=== PATIENT | male | born 1960 | race Caucasian/White ===

== ENCOUNTER 2016-07-01 14:46 | Emergency (ER) | payer OTHER ==
[~2016-07-01] VITALS: Ht 167.6 cm; Wt 96.2 kg
[~2016-07-01 14:46] MED LIST: ALBUTEROL0.09 MG/A1 INH; AMLODIPINE BES2.5 M1 PO; AMLODIPINE BESY10 MG PO; CALCITRIOL0.5 MC1; CALCIUM ACETAT667 M3 PO; COLCHICINE0.6 M2 PO; CYCLOBENZAPRINE10 M1 PO; DIAZEPAM5 MG PO; ENDOCET 325 MG-1 TA1 PO; FLEXERIL10 MG PO; FUROSEMIDE40 M1 PO; LISINOPRIL20 M1 PO; LISINOPRIL40 MG PO; MEDROL DOSEPAK1 PAC PO; MEDROL4 M2 PO; METHOCARBAMOL750 MG; METOLAZONE2.5 M1 PO; MOBIC15 MG PO; NAPROSYN 500 M500 MG PO; NAPROXEN500 M1 PO; NAPROXEN500 MG PO; NORCO 325 MG-101 TAB PO; OXYCODONE HCL5 M2 PO; PANTOPRAZOLE SO40 M1; PERCOCET 325 MG1 TA2 PO; PERCOCET 325 MG1 TA3 PO; PERCOCET 325 MG1 TAB PO; PERCOCET 5-3251 EACH PO; PRAVASTATIN SOD40 MG PO; PREDNICOT20 MG PO; ROXICODONE5 M1 PO; TAMSULOSIN HCL0.4 M1 PO; TAMSULOSIN HYD0.4 MG PO; TORADOL10 MG PO; TRADJENTA5 MG PO; TRAZODONE HCL100 M1; VALIUM2 M1 PO; VALIUM5 M1 PO; VALIUM5 M2 PO; VICODIN5-300 PO; ZITHROMAX Z-PA250 M1 PO
[2016-07-01 14:54] VITALS: BP 176/93
[2016-07-01] MEDS ORDERED: COLCHICINE0.6 M3 PO (15:35)
--- NOTE | 2016-07-01 15:36 | ED NECK/BACK PAIN COMPLAINT ---
History of Present Illness General Chief Complaint: Low Back Pain/Injury Stated Complaint: BACK PAIN Source: patient Exam Limitations: no limitations Vital Signs & Intake/Output Vital Signs & Intake/Output Vital Signs Date Time Temp Pulse Resp B/P Pulse O2 O2 Flow FiO2 Ox Delivery Rate 07/01 1454 98.7 108 20 176/93 98 Room Air Allergies Coded Allergies: nut - unspecified (ANAPHYLAXIS 04/07/16) Reconcile Medications Albuterol Sulfate (Albuterol Sulfate Hfa) 90 MCG HFA.AER.AD 2 PUFF INH Q4-6 PRN PRN WHEEZE 90 MCG PER PUFF Amlodipine Besylate 2.5 MG TABLET 1 TAB PO DAILY BP (Reported) Calcium Acetate 667 MG CAPSULE 2 CAP PO WM KIDNEYS (Reported) Colchicine 0.6 MG CAPSULE 1 CAP PO Q3D KIDNEYS (Reported) Diazepam (Valium) 5 MG TABLET 1 TAB PO Q6P PRN spasms Furosemide 40 MG TABLET 1 TAB PO DAILY KIDNEY PROBLEMS (Reported) Lisinopril 20 MG TABLET 1 TAB PO DAILY BP (Reported) Metolazone 2.5 MG TABLET 1 TAB PO DAILY DIURETIC (Reported) Oxycodone HCl/Acetaminophen (Percocet 5-325 MG Tablet) 5 MG-325 MG TABLET 1-2 TAB PO Q6P PRN pain Triage Note: PT TO ED C/O R LOWER BACK PAIN RADIATING TO HIS RIGHT HIP AND DOWN RIGHT LEG. PT HAS AN APPT WITH A PAIN MANAGEMENT DOCTOR ON 07/24. H/O BACK SURGERIES AND CHRONIC PAIN. PT HAS BEEN TAKING TRAMADOL AND VALIUM THAT WERE PRESCRIBED FROM ANOTHER ER. Triage Nurses Notes Reviewed? yes Onset: Abrupt Duration: day(s):, getting worse Quality/Severity: moderate, severe HPI: 55-year-old male with a history of chronic back pain secondary to arthritis spinal stenosis and multiple back surgeries comes in with acute exacerbation of chronic pain has been going on recently over last few days. Patient is supposed to see pain management at the end of this month. Denies any new symptoms. Pain is consistent with previous pain in the past. Pain she is down his right leg. Patient has chronic weakness in his right leg. Patient has seen his neurosurgeon and orthopedic doctor multiple times. They thought he would be best served to go to pain management. (KATHLEEN CONNOR,TAMIKO) Past History Travel History Traveled to [place] past 21 day No Medical History Any Pertinent Medical History? 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 No (TAMIKO PEDRAZA) Review of Systems Review of Systems Constitutional: Reports: no symptoms. Eyes: Reports: no symptoms. Ears, Nose, Throat, Mouth: Reports: no symptoms. Respiratory: Reports: no symptoms. Cardiovascular: Reports: no symptoms. Gastrointestinal/Abdominal: Reports: no symptoms. Musculoskeletal: Reports: see HPI. Skin: Reports: no symptoms. Neurological/Psychological: Reports: no symptoms. All Other Systems: Reviewed and Negative (TAMIKO PEDRAZA) Physical Exam Physical Exam General Appearance: well developed/nourished, mild distress Head: atraumatic Eyes: Bilateral: normal appearance. Ears, Nose, Throat, Mouth: hearing grossly normal, moist mucous membrane Neck: normal inspection Respiratory: normal breath sounds, no respiratory distress Cardiovascular: regular rate/rhythm Back: normal inspection Extremities: normal range of motion Neurologic/Psych: awake, alert, oriented x 3, normal mood/affect Skin: intact, normal color, warm/dry Comments: 4-5 strength right lower 70, 5 out of 5 strength left lower extremity (TAMIKO PEDRAZA) Progress Differential Diagnosis: AAA, aortic dissection, C spine injury, carotid dissection, cauda equina syn, herniated disc, myofascial strain, pyelo/UTI, sciatica, spinal cord inj, thoracic outlet syn, T/L spine injury, ureterolithiasis, Spinal stenosis, arthritis, Plan of Care: Current Medications Sig/Bob Start time Last Medication Dose Stop Time Status Admin Hydromorphone HCl 1 MG ONCE ONE 07/01 1543 AC (Dilaudid) 07/01 1546 Comments: 07/01/2016 3:49:38 PM Pain is chronic for this patient. Pain is consistent with previous pain. Patient is appointed pain management. Patient requesting pain medication to go home with. Patient has no new symptoms. Return if any other concerns. Patient understands and agrees with plan of care. Patient should also contact his neurosurgeon and orthopedic for follow-up. (TAMIKO PEDRAZA) Departure Departure Disposition: HOME OR SELF CARE Condition: Stable Clinical Impression Primary Impression: Acute exacerbation of chronic low back pain Referrals: YARELI TERRELL,NYDIA Orozco (PCP/Family) Referred to [facility] as new patient No Additional Instructions: Take Percocet and Valium as prescribed. Follow-up with pain management as already scheduled. Return if any other concerns worsening symptoms. Please go over all results of today's visit with your primary care doctor. Contact your primary care doctor to let them know you were here in the emergency room. There may be nonspecific findings which may not be related to your visit today here in the emergency room but may require further evaluation and chronic monitoring by your primary care doctor. If you had a laceration today the chance of foreign body always remains. You should follow-up with your primary care doctor for recheck in 3-5 days for a wound check. If you had an x-ray done there is a chance that a fracture could have been missed on initial read and you should follow-up with your primary care doctor for repeat x-rays if symptoms persist. If your blood pressure was elevated here in the emergency room please have rechecked by her primary care doctor within the next 48 hours by your primary care doctor. If you were prescribed a narcotic here in the emergency room or any type of controlled substances you're not allowed to drive while taking this medication or operate any type of heavy machinery. Narcotics can make you feel lightheaded dizziness nausea and can cause constipation. You may need to pharmacy picking technician a stool softener. Thank you for choosing [facility] emergency room. Please return to the emergency room immediately if you have any other concerns worsening of symptoms. Departure Forms: Customer Survey General Discharge Information Prescriptions: Current Visit Scripts Oxycodone HCl/Acetaminophen (Percocet 5-325 MG Tablet) 1-2 TAB PO Q6P PRN pain #20 TAB Diazepam (Valium) 1 TAB PO Q6P PRN spasms #20 TAB (TAMIKO PEDRAZA) PA/ELEMENTARY SCHOOL COUNSELOR Co-Sign Statement Statement: ED Attending supervision documentation- [] I saw and evaluated the patient. I have also reviewed all the pertinent lab results and diagnostic results. I agree with the findings and the plan of care as documented in the PA's/ELEMENTARY SCHOOL COUNSELOR's documentation. [X] I have reviewed the ED Record and agree with the PA's/ELEMENTARY SCHOOL COUNSELOR's documentation. [] Additions or exceptions (if any) to the PAs/ELEMENTARY SCHOOL COUNSELOR's note and plan are summarized below: [] (DERIAN LOONEY DO)
[2016-07-01] MEDS ORDERED: PERCOCET 5-3251 EACH PO (15:40)
[2016-07-01] MEDS ORDERED: VALIUM5 M2 PO (15:40)
== END 2016-07-01 15:47 ==
LOC: ERH 14:46
DX: G89.29 Other chronic pain (principal); M54.5 Low back pain
CPT/HCPCS: 96372

== ENCOUNTER 2016-07-15 12:11 | Emergency (ER) | payer OTHER ==
[~2016-07-15] VITALS: Ht 167.6 cm; Wt 96.2 kg
[~2016-07-15 12:11] MED LIST changes: +COLCHICINE0.6 M3 PO
[2016-07-15 12:19] VITALS: BP 195/85
--- NOTE | 2016-07-15 13:19 | ED NECK/BACK PAIN COMPLAINT ---
History of Present Illness General Chief Complaint: Lower Extremity Problems Stated Complaint: R LEG PAIN RAIDIATING INTO FOOT Source: patient Exam Limitations: no limitations Vital Signs & Intake/Output Vital Signs & Intake/Output Vital Signs Date Time Temp Pulse Resp B/P Pulse O2 O2 Flow FiO2 Ox Delivery Rate 07/15 1219 98.8 89 18 195/85 98 Room Air ED Intake and Output 07/16 0000 07/15 1200 Intake Total Output Total Balance Patient 212 lb Weight Allergies Coded Allergies: nut - unspecified (ANAPHYLAXIS 04/07/16) Reconcile Medications Albuterol Sulfate (Albuterol Sulfate Hfa) 90 MCG HFA.AER.AD 2 PUFF INH Q4-6 PRN PRN WHEEZE 90 MCG PER PUFF Amlodipine Besylate 2.5 MG TABLET 1 TAB PO DAILY BP (Reported) Calcium Acetate 667 MG CAPSULE 2 CAP PO WM KIDNEYS (Reported) Colchicine 0.6 MG CAPSULE 1 CAP PO Q3D KIDNEYS (Reported) Diazepam (Valium) 5 MG TABLET 1 TAB PO Q6P PRN spasms Diazepam (Valium) 5 MG TABLET 1 TAB PO TID SPASMS Doxycycline Hyclate 100 MG TABLET 1 TAB PO BID FOLLICULITIS Furosemide 40 MG TABLET 1 TAB PO DAILY KIDNEY PROBLEMS (Reported) Lisinopril 20 MG TABLET 1 TAB PO DAILY BP (Reported) Metolazone 2.5 MG TABLET 1 TAB PO DAILY DIURETIC (Reported) Mupirocin Calcium (Bactroban) 2 % CREAM..G. 1 SANA TOP TID RASH apply to affected area(s) Oxycodone HCl/Acetaminophen (Percocet 5-325 MG Tablet) 5 MG-325 MG TABLET 1-2 TAB PO Q6P PRN pain Oxycodone HCl/Acetaminophen (Percocet 5-325 MG Tablet) 5 MG-325 MG TABLET 1-2 TAB PO Q6P PRN pain Triage Note: PT STATES HE HAS CHRONIC SCIATICA RUNNING DOWN HIS RIGHT LEG INTO HIS BIG TOE. PT STATES HE HAS BEEN TAKING PERCOCET AND VALIUM FOR THE PAIN. PT IS [facility]ING [facility] IN [place] Triage Nurses Notes Reviewed? yes Onset: Abrupt Duration: chronic Timing: recent history Quality/Severity: moderate, severe Location: lumbar spine Radiation: none Loss of Consciousness: no loss of consciousness HPI: 55-year-old male comes into emergency room with complaints of chronic low back pain reading down his right leg. Patient is due to see pain management on July 24. Patient was here recently. Patient here for refill on pain medication. Pain is chronic. Continuous. Worse with range of motion. Unchanged from previous pain. No urinary bowel dysfunction. Percocet and Valium that was prescribed last time helped but he ran out of the medication. Denies any other associated symptoms. (TAMIKO PEDRAZA) Past History Travel History Traveled to [place] past 21 day No Medical History Any Pertinent Medical History? 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 No (TAMIKO PEDRAZA) Review of Systems Review of Systems Constitutional: Reports: no symptoms. Eyes: Reports: no symptoms. Ears, Nose, Throat, Mouth: Reports: no symptoms. Respiratory: Reports: no symptoms. Cardiovascular: Reports: no symptoms. Gastrointestinal/Abdominal: Reports: no symptoms. Musculoskeletal: Reports: see HPI. Skin: Reports: no symptoms. Neurological/Psychological: Reports: see HPI. All Other Systems: Reviewed and Negative (TAMIKO PEDRAZA) Physical Exam Physical Exam General Appearance: well developed/nourished, mild distress Head: atraumatic Eyes: Bilateral: normal appearance. Ears, Nose, Throat, Mouth: hearing grossly normal, moist mucous membrane Neck: normal inspection, full range of motion Respiratory: normal breath sounds, no respiratory distress Cardiovascular: regular rate/rhythm Gastrointestinal: soft, non-tender Back: normal inspection Extremities: normal range of motion Neurologic/Psych: awake, alert, oriented x 3, normal mood/affect Skin: intact, normal color, warm/dry (TAMIKO PEDRAZA) Progress Differential Diagnosis: AAA, aortic dissection, C spine injury, carotid dissection, cauda equina syn, herniated disc, myofascial strain, pyelo/UTI, sciatica, spinal cord inj, thoracic outlet syn, T/L spine injury, ureterolithiasis Plan of Care: 07/15/2016 2:17:09 PM This is a chronic issue for the patient. Patient clinically looks well. Nontoxic-appearing. In no apparent distress. Follow-up with pain management as already scheduled. (TAMIKO PEDRAZA) Departure Departure Disposition: HOME OR SELF CARE Condition: Stable Clinical Impression Primary Impression: Acute exacerbation of chronic low back pain Secondary Impressions: Folliculitis Referrals: CHRISTIE TERRELL,CONNOR Perez (PCP/Family) Additional Instructions: Take doxycycline, Bactroban, Valium, Percocet as prescribed. Follow-up with pain management as already scheduled. Return if any concerns worsening symptoms. Follow-up with your primary care physician this week. Return to the emergency room at any time sooner if you have worsening of your symptoms or any other concerns. Please note that there might be incidental findings in your evaluation that are unrelated to the current emergency department visit. Please notify your primary care doctor about this emergency department visit in order to obtain and review all of the testing performed so that these incidental findings can be monitored as needed. If you were prescribed a narcotic use caution as this medication is highly addictive and will make you drowsy use for breakthrough pain only. No driving, drinking alcohol or operating machinary when taking. If you had an x-ray performed, please understand that some fractures may not be seen on the initial set of x-rays. If your symptoms persist you might need a repeat set of x-rays to check for such a fracture. If you had a laceration evaluated, please understand that foreign bodies such as glass or wood may not be visible to the naked eye or on plain x-rays. If the wound becomes red, swollen, increasingly more painful or if there is any drainage from the wound, please have it reevaluated by a physician for the possibility of a retained foreign body. Departure Forms: Customer Survey General Discharge Information Prescriptions: Current Visit Scripts Oxycodone HCl/Acetaminophen (Percocet 5-325 MG Tablet) 1-2 TAB PO Q6P PRN pain #20 TAB Diazepam (Valium) 1 TAB PO TID #20 TAB Doxycycline Hyclate 1 TAB PO BID #20 TAB Mupirocin Calcium (Bactroban) 1 SANA TOP TID #30 GM apply to affected area(s) (TAMIKO PEDRAZA) PA/FACETER Co-Sign Statement Statement: ED Attending supervision documentation- [] I saw and evaluated the patient. I have also reviewed all the pertinent lab results and diagnostic results. I agree with the findings and the plan of care as documented in the PA's/FACETER's documentation. [X] I have reviewed the ED Record and agree with the PA's/FACETER's documentation. [] Additions or exceptions (if any) to the PAs/FACETER's note and plan are summarized below: [] (RICKEY TERRELL,CARLOS)
[2016-07-15] MEDS ORDERED: PERCOCET 5-3251 EACH PO (13:24)
[2016-07-15] MEDS ORDERED: VALIUM5 M2 PO (13:24)
[2016-07-15] MEDS ORDERED: DOXYCYCLINE HY100 M4 PO (13:24)
[2016-07-15] MEDS ORDERED: BACTROBAN15 GM TOP (13:24)
== END 2016-07-15 13:45 ==
LOC: ERH 12:11
DX: G89.29 Other chronic pain (principal); M54.5 Low back pain; L73.9 Follicular disorder, unspecified

== ENCOUNTER 2016-09-22 15:27 | Emergency (ER) | payer OTHER ==
[~2016-09-22] VITALS: Ht 167.6 cm; Wt 104.3 kg
[~2016-09-22 15:27] MED LIST changes: +BACTROBAN15 GM TOP; +DOXYCYCLINE HY100 M4 PO
[2016-09-22 15:38] VITALS: BP 194/84
--- NOTE | 2016-09-22 16:32 | ED GENERAL ADULT ---
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 Source: patient, old records Exam Limitations: no limitations Vital Signs & Intake/Output Vital Signs & Intake/Output Vital Signs Date Time Temp Pulse Resp B/P Pulse O2 O2 Flow FiO2 Ox Delivery Rate 09/22 1538 99.0 69 20 194/84 98 Room Air Allergies Coded Allergies: nut - unspecified (ANAPHYLAXIS 09/22/16) Reconcile Medications Albuterol Sulfate (Albuterol Sulfate Hfa) 90 MCG HFA.AER.AD 2 PUFF INH Q4-6 PRN PRN WHEEZE 90 MCG PER PUFF Amlodipine Besylate 2.5 MG TABLET 1 TAB PO DAILY BP (Reported) Calcium Acetate 667 MG CAPSULE 2 CAP PO WM KIDNEYS (Reported) Colchicine 0.6 MG CAPSULE 1 CAP PO Q3D KIDNEYS (Reported) Diazepam (Valium) 5 MG TABLET 1 TAB PO Q6P PRN spasms Diazepam (Valium) 5 MG TABLET 1 TAB PO TID SPASMS Doxycycline Hyclate 100 MG TABLET 1 TAB PO BID FOLLICULITIS Furosemide 40 MG TABLET 1 TAB PO DAILY KIDNEY PROBLEMS (Reported) Lisinopril 20 MG TABLET 1 TAB PO DAILY BP (Reported) Metolazone 2.5 MG TABLET 1 TAB PO DAILY DIURETIC (Reported) Mupirocin Calcium (Bactroban) 2 % CREAM..G. 1 SANA TOP TID RASH apply to affected area(s) Oxycodone HCl/Acetaminophen (Percocet 5-325 MG Tablet) 5 MG-325 MG TABLET 1-2 TAB PO Q6P PRN pain Oxycodone HCl/Acetaminophen (Percocet 5-325 MG Tablet) 5 MG-325 MG TABLET 1-2 TAB PO Q6P PRN pain Oxycodone HCl/Acetaminophen (Percocet 5-325 MG Tablet) 5 MG-325 MG TABLET 1-2 TAB PO Q6P PRN PAIN Triage Note: TRIAGE: PT TO ER C/C PAIN TO L ARM FROM FISTULA S/P PLACEMENT OF SAME 4 WEEKS AGO. STATES MD HAS BEEN PRESCRIBING PERCOCET FOR PAIN, RAN OUT OF SAME 3 DAYS. STATES IT WAS OK BUT GOT WORSE AGAIN TODAY. +THRILL/BRUIT. Triage Nurses Notes Reviewed? yes HPI: Patient presents with 10 out of 10 burning pain to his left hand. The pain worsens while he is at work. 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 There is no numbness or tingling. Patient ran out of pain medications on Friday. Patient had a shunt placed in his left upper extremity for weeks ago and is due to see his vascular surgeon on Friday. She knew his wrist. Past History Travel History Traveled to [place] past 21 day No Medical History Any Pertinent Medical History? 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 No Review of Systems Review of Systems Constitutional: Reports: no symptoms. EENTM: Reports: no symptoms. Respiratory: Reports: no symptoms. Cardiovascular: Reports: no symptoms. GI: Reports: no symptoms. Genitourinary: Reports: no symptoms. Musculoskeletal: Reports: see HPI. Skin: Reports: no symptoms. Neurological/Psychological: Reports: see HPI. Hematologic/Endocrine: Reports: no symptoms. Immunologic/Allergic: Reports: no symptoms. All Other Systems: Reviewed and Negative Physical Exam Physical Exam General Appearance: well developed/nourished, alert, awake, moderate distress Head: atraumatic Eyes: Bilateral: PERRL, EOMI. Ears, Nose, Throat: normal pharynx Neck: normal inspection, supple Respiratory: normal breath sounds, chest non-tender, no respiratory distress, lungs clear Cardiovascular: regular rate/rhythm, normal peripheral pulses Gastrointestinal: normal bowel sounds, soft, non-tender Extremities: normal inspection, normal capillary refill, normal range of motion, no edema Neurologic/Psych: no motor/sensory deficits, awake, alert, oriented x 3, normal gait, normal mood/affect Skin: intact, normal color, warm/dry Comments: Good thrill over shunt. Capillary refill less than 2 seconds. Good radial pulses. Good blood flow through the ulnar artery. No signs of vascular compromise. Core Measures ACS in differential dx? No CVA/TIA Diagnosis: No Severe Sepsis Present: No Septic Shock Present: No Progress Differential Diagnoses I considered the following diagnoses in my evaluation of the patient: [Postop pain. Shunt steal, pain medication refill] Plan of Care: Refill pain meds. Initial ED EKG: none Comments: Case was discussed with vascular surgery. No signs of vascular compromise. Patient stable for discharge. Departure Departure Disposition: HOME OR SELF CARE Condition: Stable Clinical Impression Primary Impression: Hand pain, left Referrals: CHRISTIE TERRELL,CONNOR Perez (PCP/Family) Additional Instructions: FOLLOW UP WITH YOUR VASCULAR SURGEON Departure Forms: Customer Survey General Discharge Information Prescriptions: Current Visit Scripts Oxycodone HCl/Acetaminophen (Percocet 5-325 MG Tablet) 1-2 TAB PO Q6P PRN PAIN #12 TAB Critical Care Note Critical Care Note Critical Care Time: non-applicable
[2016-09-22] MEDS ORDERED: PERCOCET 5-3251 EACH PO (16:51)
== END 2016-09-22 17:15 ==
LOC: ERH 15:27
DX: M79.642 Pain in left hand (principal)

== ENCOUNTER 2016-12-08 14:14 | Emergency (ER) | payer OTHER ==
[~2016-12-08] VITALS: Ht 170.2 cm; Wt 98.9 kg
[2016-12-08 14:17] VITALS: BP 177/76
[2016-12-08] MEDS ORDERED: TAMSULOSIN HCL0.4 M1 PO (14:34)
--- NOTE | 2016-12-08 15:06 | ED GENERAL ADULT ---
History of Present Illness General Chief Complaint: Low Back Pain/Injury Stated Complaint: BACK PAIN Source: patient Exam Limitations: no limitations Vital Signs & Intake/Output Vital Signs & Intake/Output Vital Signs Date Time Temp Pulse Resp B/P B/P Pulse O2 O2 Flow FiO2 Mean Ox Delivery Rate 12/08 1417 99.3 83 16 177/76 97 Room Air Allergies Coded Allergies: nut - unspecified (ANAPHYLAXIS 09/22/16) Triage Note: PT C/O LOW BACK PAIN RIGHT SIDE THAT RADIATES DOWN HIS LEG INTO HIS BIG TOE. PT WILL BE STARTING PAIN MANAGEMENT ON FRIDAY Triage Nurses Notes Reviewed? yes HPI: 55 y/o male with h/o chronic back pain, disc herniation, spinal stenosis, s/p lumbar disectomy and spinal fusion presenting for acute on chronic back pain x1 weeks. Reports sharp right low back pain with radiating of electric shock like pain to the RLE. States he has tried percocet and valium in the past with good pain relief. Has an appt 12/24/16 to begin pain management. No recent trauma. Denies fevers, IVDU, saddle paresthias, or urinary/bowel incontinence/rention. (STEPHEN DIA,PATIENCE) Reconcile Medications Amlodipine Besylate 2.5 MG TABLET 1 TAB PO DAILY BP (Reported) Calcium Acetate 667 MG CAPSULE 2 CAP PO WM KIDNEYS (Reported) Colchicine 0.6 MG CAPSULE 1 CAP PO Q3D KIDNEYS (Reported) Diazepam (Valium) 5 MG TABLET 1 TAB PO NIGHTLY PRN back pain Furosemide 40 MG TABLET 1 TAB PO DAILY KIDNEY PROBLEMS (Reported) Lisinopril 20 MG TABLET 1 TAB PO DAILY BP (Reported) Metolazone 2.5 MG TABLET 1 TAB PO DAILY DIURETIC (Reported) Tamsulosin HCl 0.4 MG CAP.ER.24H 1 CAP PO DAILY PROSTATE (Reported) (TREE TERRELL,BELINDA Gómez) Past History Travel History Traveled to [place] past 21 day No Medical History Any Pertinent Medical History? see below for history Neurological: NEUROPATHY EENT: NONE Cardiovascular: hypertension, CARDIAC STENTS Respiratory: NONE Gastrointestinal: NONE Hepatic: NONE Renal: chronic kidney disease, nephrolithiasis, SHUNT TO R CHEST WALL AVF L ARM DIALYSIS T-TH-SAT Musculoskeletal: disk herniation, gout, PLANTAR FASCIATIS CHRONIC PAIN Psychiatric: NONE Endocrine: diabetes Blood Disorders: NONE Cancer(s): NONE POISER/Reproductive: NONE Surgical History Surgical History: spinal fusion, LUMBAR DISCECTOMY Psychosocial History What is your primary language Frisian Tobacco Use: Current Daily Use Daily Tobacco Use Amount/Type: => 5 Cigarettes daily ETOH Use: denies use Illicit Drug Use: denies illicit drug use Family History Hx Contributory? No (PATIENCE MITCHELL PA-C) Review of Systems Review of Systems Constitutional: Reports: no symptoms. Respiratory: Reports: no symptoms. Cardiovascular: Reports: no symptoms. GI: Reports: no symptoms. Genitourinary: Reports: no symptoms. Musculoskeletal: Reports: back pain. Denies: neck pain. Skin: Reports: no symptoms. Neurological/Psychological: Reports: no symptoms. (STEPHEN DIA,PATIENCE) Physical Exam Physical Exam General Appearance: well developed/nourished, no apparent distress, awake, comfortable Head: atraumatic Respiratory: normal breath sounds, lungs clear Cardiovascular: regular rate/rhythm, normal peripheral pulses Back: normal inspection, normal range of motion, no vertebral tenderness, TTP of right low back muscles, no palpable spasm, unrestriced spinal ROM, positive straight leg raise of the RLE Neurologic/Psych: no motor/sensory deficits, awake, alert, oriented x 3, normal gait Skin: intact, normal color, warm/dry Core Measures ACS in differential dx? No CVA/TIA Diagnosis: No Severe Sepsis Present: No Septic Shock Present: No (PATIENCE MITCHELL PA-C) Progress Differential Diagnoses I considered the following diagnoses in my evaluation of the patient: [Muscle strain vs disc herniation vs sciatica vs progression of chronic disease vs epidural abscess vs cauda equina] Plan of Care: Current Medications Sig/Bob Start time Last Medication Dose Stop Time Status Admin Oxycodone/ 1 TAB ONCE ONE 12/08 1515 UNVr Acetaminophen 12/08 1516 (Percocet) Pt's h/o prescription narcotic use reviewed on [facility] [employer] website. Advised the patient we can give him once dose of percocet in the ED to help break his pain, but that he will not be given prescription for additional narcotics. Instructed he needs to see pain management to establish care with a single provider who will manage his pain. Will send him with rx valium, pt states he already has naproxen and lidoderm patches at home. (PATIENCE MITCHELL PA-C) Initial ED EKG: none (PATIENCE MITCHELL PA-C) Departure Departure Disposition: HOME OR SELF CARE Condition: Stable Clinical Impression Primary Impression: Low back pain Referrals: PATIENT HAS NO PRIMARY CARE DR (PCP/Family) Additional Instructions: Take 5mg valium nightly as needed to help alleviate back pain. Apply 1 lidoderm patch to sore area once daily as needed for pain. Use 500mg naproxen by mouth twice a day with a meal as needed for pain. Follow up with pain management for further evaluation as scheduled on 12/24/16. Return to the ED for any new or worsening symptoms. Departure Forms: Customer Survey General Discharge Information (PATIENCE MITCHELL PA-C) Departure Prescriptions: Current Visit Scripts Diazepam (Valium) 1 TAB PO NIGHTLY PRN back pain #10 TAB PA/SALES PROMOTION MANAGER Co-Sign Statement Statement: ED Attending supervision documentation- [] I saw and evaluated the patient. I have also reviewed all the pertinent lab results and diagnostic results. I agree with the findings and the plan of care as documented in the PA's/SALES PROMOTION MANAGER's documentation. [X] I have reviewed the ED Record and agree with the PA's/SALES PROMOTION MANAGER's documentation. [] Additions or exceptions (if any) to the PAs/SALES PROMOTION MANAGER's note and plan are summarized below: [] (TREE TERRELL,BELINDA Gómez) Critical Care Note Critical Care Note Critical Care Time: non-applicable (PATIENCE MITCHELL PA-C)
[2016-12-08] MEDS ORDERED: VALIUM5 M2 PO (15:26)
== END 2016-12-08 15:30 ==
LOC: ERH 14:14
DX: M54.5 Low back pain (principal)

== ENCOUNTER 2017-10-10 17:19 | Emergency (ER) | payer OTHER ==
[~2017-10-10] VITALS: Ht 170.2 cm; Wt 102.1 kg
[~2017-10-10 17:19] MED LIST changes: +AMLODIPINE BESY10 M1 PO; +CARVEDILOL6.25 M1 PO; +COLACE100 M1 PO; +LEVETIRACETAM1000 M1 PO; +LIDOCAINE-PRILO30 GM TOP; +LISINOPRIL40 M1 PO; +PROAIR HFA8.5 GM INH
[2017-10-10 17:41] VITALS: BP 162/74
--- NOTE | 2017-10-10 18:46 | ED ANKLE/FOOT INJURY COMPLAINT ---
History of Present Illness General Chief Complaint: Foot or Ankle Injury Stated Complaint: FOOT PAIN Source: patient, old records Exam Limitations: no limitations Vital Signs & Intake/Output Vital Signs & Intake/Output Vital Signs Date Time Temp Pulse Resp B/P B/P Pulse O2 O2 Flow FiO2 Mean Ox Delivery Rate 10/10 1741 97.4 84 15 162/74 96 Room Air Room Air Allergies Coded Allergies: nut - unspecified (ANAPHYLAXIS 10/10/17) Reconcile Medications Albuterol Sulfate (Proair Hfa) 90 MCG HFA.AER.AD 2 PUF INH AD PRN RESP ( Reported) Amlodipine Besylate 10 MG TABLET 1 TAB PO DAILY BP (Reported) Calcium Acetate 667 MG CAPSULE 2 CAP PO WM KIDNEYS (Reported) Carvedilol 6.25 MG TABLET 1 TAB PO BID HEART/BP (Reported) Colchicine 0.6 MG CAPSULE 1 CAP PO Q3D KIDNEYS (Reported) Diazepam (Valium) 5 MG TABLET 1 TAB PO BIDP PRN SPASMS Docusate Sodium (Colace) 100 MG CAPSULE 1 CAP PO BID STOOL SOFTENER (Reported ) Levetiracetam 1,000 MG TABLET 1 TAB PO BID SEIZURES (Reported) Lidocaine/Prilocaine (Lidocaine-Prilocaine Cream) 2.5 %-2.5 % CREAM..G. 1 SANA TOP AD PRN DIALYSIS (Reported) Lisinopril 40 MG TABLET 1 TAB PO DAILY BP (Reported) Metolazone 2.5 MG TABLET 1 TAB PO DAILY DIURETIC (Reported) Oxycodone HCl/Acetaminophen (Percocet 5-325 MG Tablet) 5 MG-325 MG TABLET 1-2 TAB PO BID PAIN Tamsulosin HCl 0.4 MG CAP.ER.24H 1 CAP PO DAILY PROSTATE (Reported) Triage Nurses Notes Reviewed? yes HPI: PT TO ED FOR C/C OF L HEEL PAIN THAT RADIATES INTO GREAT TOE. HX OF SAME. HAS SPURS ON FOOT. DENIES INJURY. Past History Travel History Traveled to [place] past 21 day No Medical History Any Pertinent Medical History? 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 No Physical Exam Physical Exam General Appearance: well developed/nourished Progress Differential Diagnosis: septic arthritis, gout, fracture, dislocation, sprain, contusion Departure Departure Condition: Stable Referrals: Ray Wilder MD (PCP/Family) Departure Forms: Customer Survey General Discharge Information Physical Exam Physical Exam General Appearance: well developed/nourished, alert Leg/Knee/Thigh Left: normal inspection Comments: Well-developed well-nourished patient in no apparent distress. HEENT: Atraumatic, extraocular motion intact Neck: Supple, FROM Back: FROM Respiratory: No respiratory distress. Patient speaking in full complete sentences. Breath sounds clear to auscultation bilaterally: NO W/R/R Upper Extremities: full range of motion Hip/Pelvis: Atraumatic/Stable. FROM. No pain with pelvic compression Knee: Atraumatic/stable. FROM. No joint swelling, no effusion Leg: Atraumatic. Nontender. No edema, 5 out of 5 strength in the lower extremity, normal dorsiflexion of great toe bilaterally, gross sensation is intact Ankle/Foot: Atraumatic/stable. Skin intact. FROM. No swelling, no effusion. No laxity on exam Pulses: Normal/equal DP/PT pulses bilaterally. Brisk cap refill Neuro: awake, alert, and oriented to person, place and time. There were no obvious focal neurologic abnormalities. Skin: Warm & dry;No appreciable rash on exposed skin Psych: Mood affect normal, normal memory normal judgment. Progress Differential Diagnosis: septic arthritis, gout, fracture, dislocation, sprain, contusion Departure Departure Condition: Stable Referrals: Ray Wilder MD (PCP/Family) Departure Forms: Customer Survey General Discharge Information
== END 2017-10-10 18:40 | disposition admitted as inpatient to this hospital (09) ==
LOC: ERH 17:19
DX: M79.672 Pain in left foot (principal)

== ENCOUNTER 2017-12-07 13:46 | Emergency (ER) | payer OTHER ==
[~2017-12-07] VITALS: Ht 170.2 cm; Wt 99.3 kg
--- NOTE | 2017-12-07 15:37 | ED NECK/BACK PAIN COMPLAINT ---
History of Present Illness General Chief Complaint: Low Back Pain/Injury Stated Complaint: PER PT SCIATIC NERVE PAIN Source: patient, old records Exam Limitations: no limitations Vital Signs & Intake/Output Vital Signs & Intake/Output Vital Signs Date Time Temp Pulse Resp B/P B/P Pulse O2 O2 Flow FiO2 Mean Ox Delivery Rate 12/07 1600 Room Air 12/07 1547 97.3 78 20 198/90 98 Room Air 12/07 1356 97.4 75 20 192/83 97 Room Air Allergies Coded Allergies: nut - unspecified (ANAPHYLAXIS 10/10/17) Reconcile Medications Albuterol Sulfate (Proair Hfa) 90 MCG HFA.AER.AD 2 PUF INH AD PRN RESP ( Reported) Amlodipine Besylate 10 MG TABLET 1 TAB PO DAILY BP (Reported) Calcium Acetate 667 MG CAPSULE 2 CAP PO WM KIDNEYS (Reported) Carvedilol 6.25 MG TABLET 1 TAB PO BID HEART/BP (Reported) Colchicine 0.6 MG CAPSULE 1 CAP PO Q3D KIDNEYS (Reported) Diazepam (Valium) 5 MG TABLET 1 TAB PO BIDP PRN SPASMS Docusate Sodium (Colace) 100 MG CAPSULE 1 CAP PO BID STOOL SOFTENER (Reported ) Levetiracetam 1,000 MG TABLET 1 TAB PO BID SEIZURES (Reported) Lidocaine/Prilocaine (Lidocaine-Prilocaine Cream) 2.5 %-2.5 % CREAM..G. 1 SANA TOP AD PRN DIALYSIS (Reported) Lisinopril 40 MG TABLET 1 TAB PO DAILY BP (Reported) Metolazone 2.5 MG TABLET 1 TAB PO DAILY DIURETIC (Reported) Oxycodone HCl/Acetaminophen (Percocet 5-325 MG Tablet) 5 MG-325 MG TABLET 1-2 TAB PO BID PAIN Tamsulosin HCl 0.4 MG CAP.ER.24H 1 CAP PO DAILY PROSTATE (Reported) Triage Note: C/O SCIATIC NERVE PAIN DOWN LEFT BUTTOCKS RADIATING DOWN LEFT LEG Triage Nurses Notes Reviewed? yes HPI: 56M PMH ESRD on HD, chronic lower back pain s/p multiple surgeries and hardware, presenting with acute lower left lumbar back pain radiating down leg to foot. Pain started after he was trying to set up a kiddie pool. He appears uncomfortable and is leaning to the right. He has exacerbations of back pain every few months that presents similarly. He denies saddle paresthesia, incontinence, or retention. No trauma. Denies weakness, numbness, paresthesia, abdominal pain, chest pain, stiff neck, dysuria, constipation, diarrhea. Past History Travel History Traveled to [place] past 21 day No Medical History Any Pertinent Medical History? 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 No Review of Systems Review of Systems Constitutional: Reports: no symptoms. Eyes: Reports: no symptoms. Ears, Nose, Throat, Mouth: Reports: no symptoms. Respiratory: Reports: no symptoms. Cardiovascular: Reports: no symptoms. Gastrointestinal/Abdominal: Reports: no symptoms. Musculoskeletal: Reports: no symptoms. Skin: Reports: no symptoms. Neurological/Psychological: Reports: no symptoms. All Other Systems: Reviewed and Negative Physical Exam Physical Exam General Appearance: well developed/nourished, moderate distress Head: atraumatic, normal appearance Eyes: Bilateral: normal appearance. Ears, Nose, Throat, Mouth: moist mucous membrane Neck: normal inspection, full range of motion Respiratory: normal breath sounds, no respiratory distress Cardiovascular: regular rate/rhythm Gastrointestinal: soft, non-tender Back: normal inspection, ROM limited by pain, left lumbar paraspinal tenderness Extremities: non-tender, normal range of motion Straight Leg Raising: Left: Pain at ____ degrees (10). Sensory: Medial Le: L4R, L4L. Sole of Foot: 2: SIR, YANETH. Neurologic/Psych: no motor/sensory deficits, awake, alert, oriented x 3, normal mood/affect Skin: intact, normal color, warm/dry Core Measures CVA/TIA Diagnosis: No Progress Differential Diagnosis: cauda equina syn, herniated disc, myofascial strain, sciatica, spinal cord inj, T/L spine injury Plan of Care: Current Medications Sig/Bob Start time Last Medication Dose Stop Time Status Admin Diazepam 5 MG ONCE ONE 12/07 1544 UNVr (Valium) 12/07 154 Oxycodone/ 1 TAB ONCE ONE 12/07 154 UNVr Acetaminophen 12/07 154 (Percocet) Departure Departure Disposition: HOME OR SELF CARE Condition: Stable Clinical Impression Primary Impression: Left sided sciatica Referrals: Meño TERRELL,Ray Orozco (PCP/Family) Additional Instructions: Follow up with your PCP. If any new or worsening symptoms, return to ER. Do not drink alcohol, drive, or operative machinery while taking Percocet or Valium. Departure Forms: Customer Survey General Discharge Information Prescriptions: Current Visit Scripts Oxycodone HCl/Acetaminophen (Percocet 5-325 MG Tablet) 1 TAB PO TID #15 TAB Diazepam 1 TAB PO BIDP PRN SCIATICA #15 TAB
[2017-12-07 15:47] VITALS: BP 198/90
[2017-12-07] MEDS ORDERED: PERCOCET 5-3251 EACH PO (16:06)
[2017-12-07] MEDS ORDERED: DIAZEPAM5 M1 PO (16:06)
== END 2017-12-07 16:33 ==
LOC: ERH 13:46
DX: M54.42 Lumbago with sciatica, left side (principal)
CPT/HCPCS: J3360

== ENCOUNTER 2017-12-24 17:54 | Emergency (ER) | payer OTHER ==
[~2017-12-24] VITALS: Ht 170.2 cm; Wt 99.3 kg
[~2017-12-24 17:54] MED LIST changes: +DIAZEPAM5 M1 PO
[2017-12-24 17:57] VITALS: BP 189/77
--- NOTE | 2017-12-24 17:57 | ED NECK/BACK PAIN COMPLAINT ---
History of Present Illness General Chief Complaint: Low Back Pain/Injury Stated Complaint: SCIATIC PAIN Source: patient Exam Limitations: no limitations Vital Signs & Intake/Output Vital Signs & Intake/Output Vital Signs Date Time Temp Pulse Resp B/P B/P Pulse O2 O2 Flow FiO2 Mean Ox Delivery Rate 12/24 1757 98.7 78 18 189/77 98 Room Air Allergies Coded Allergies: nut - unspecified (ANAPHYLAXIS 10/10/17) Triage Nurses Notes Reviewed? yes Onset: Abrupt Duration: day(s): Timing: recent history Quality/Severity: moderate, severe Location: lumbar spine HPI: 57-year-old male comes into emergency room with exacerbation of his chronic low back pain that radiates down his left side. Pain is sharp. Worse with range of motion. History of sciatica. History of for lumbar surgeries. Pain shoots down to his left great toe. Pain is exactly how it has in the past. He has had Percocet and Valium in the past which has helped. In the process of trying to get in with pain management. (Massimo CONNOR,Tomi) Reconcile Medications Albuterol Sulfate (Proair Hfa) 90 MCG HFA.AER.AD 2 PUF INH AD PRN RESP ( Reported) Amlodipine Besylate 10 MG TABLET 1 TAB PO DAILY BP (Reported) Calcium Acetate 667 MG CAPSULE 2 CAP PO WM KIDNEYS (Reported) Carvedilol 6.25 MG TABLET 1 TAB PO BID HEART/BP (Reported) Colchicine 0.6 MG CAPSULE 1 CAP PO Q3D KIDNEYS (Reported) Diazepam 5 MG TABLET 1 TAB PO BIDP PRN SCIATICA Diazepam (Valium) 5 MG TABLET 1 TAB PO BIDP PRN SPASMS Diazepam (Valium) 5 MG TABLET 1 TAB PO BIDP PRN spasms Diazepam (Valium) 5 MG TABLET 1 TAB PO Q6P PRN muscle strain/spasm Docusate Sodium (Colace) 100 MG CAPSULE 1 CAP PO BID STOOL SOFTENER (Reported ) Levetiracetam 1,000 MG TABLET 1 TAB PO BID SEIZURES (Reported) Lidocaine/Prilocaine (Lidocaine-Prilocaine Cream) 2.5 %-2.5 % CREAM..G. 1 SANA TOP AD PRN DIALYSIS (Reported) Lisinopril 40 MG TABLET 1 TAB PO DAILY BP (Reported) Metolazone 2.5 MG TABLET 1 TAB PO DAILY DIURETIC (Reported) Oxycodone HCl/Acetaminophen (Percocet 5-325 MG Tablet) 5 MG-325 MG TABLET 1 TAB PO TID SCIATICA Oxycodone HCl/Acetaminophen (Percocet 5-325 MG Tablet) 5 MG-325 MG TABLET 1-2 TAB PO BID PAIN Oxycodone HCl/Acetaminophen (Percocet 5-325 MG Tablet) 5 MG-325 MG TABLET 1-2 TAB PO BID pain Oxycodone HCl/Acetaminophen (Percocet 10-325 MG Tablet) 10 MG-325 MG TABLET 1 TAB PO 4 TIMES/DAY PRN severe pain Tamsulosin HCl 0.4 MG CAP.ER.24H 1 CAP PO DAILY PROSTATE (Reported) (Abdifatah Mendieta DO) Past History Travel History Traveled to [place] past 21 day No Medical History Any Pertinent Medical History? 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 No (Tomi Gan) Review of Systems Review of Systems Constitutional: Reports: no symptoms. Eyes: Reports: no symptoms. Ears, Nose, Throat, Mouth: Reports: no symptoms. Respiratory: Reports: no symptoms. Cardiovascular: Reports: no symptoms. Gastrointestinal/Abdominal: Reports: no symptoms. Musculoskeletal: Reports: see HPI. Skin: Reports: no symptoms. Neurological/Psychological: Reports: no symptoms. All Other Systems: Reviewed and Negative (Tomi Gan) Physical Exam Physical Exam General Appearance: well developed/nourished, mild distress Head: atraumatic Eyes: Bilateral: normal appearance. Ears, Nose, Throat, Mouth: hearing grossly normal, moist mucous membrane Neck: normal inspection Respiratory: normal breath sounds, no respiratory distress Back: normal inspection Extremities: normal range of motion Motor: Deficit L4 Right: No Deficit L4 Left: No Deficit L5 Right: No Deficit L5 Left: No Deficit S1 Right: No Deficit S1 Right: No Neurologic/Psych: awake, alert, oriented x 3, normal mood/affect Skin: intact, normal color, warm/dry Core Measures CVA/TIA Diagnosis: No (Tomi Gan) Progress Differential Diagnosis: cauda equina syn, herniated disc, myofascial strain, sciatica Plan of Care: 12/24/2017 7:00:12 PM This is an acute on chronic issue with the patient. No changes in symptoms. Follow-up with pain management. Return if any concerns worsening symptoms. (Tomi Gan) Departure Departure Disposition: HOME OR SELF CARE Condition: Stable Clinical Impression Primary Impression: Sciatica of left side Referrals: Meño TERRELL,Ray Orozco (PCP/Family) Additional Instructions: Take Percocet and Valium as prescribed. Follow-up with pain management. Return if any concerns worsening symptoms Please go over all results of today's visit with your primary care doctor. Contact your primary care doctor to let them know you were here in the emergency room. There may be nonspecific findings which may not be related to your visit today here in the emergency room but may require further evaluation and chronic monitoring by your primary care doctor. If you had a laceration today the chance of foreign body always remains. You should follow-up with your primary care doctor for recheck in 3-5 days for a wound check. If you had an x-ray done there is a chance that a fracture could have been missed on initial read and you should follow-up with your primary care doctor for repeat x-rays if symptoms persist. If your blood pressure was elevated here in the emergency room please have rechecked by [facility] primary care doctor within the next 48. If you were prescribed a narcotic here in the emergency room or any type of controlled substances you're not allowed to drive while taking this medication or operate any type of heavy machinery. Narcotics can make you feel lightheaded dizziness nausea and can cause constipation. You may need to warp picker a stool softener. Thank you for choosing [facility] emergency room. Please return to the emergency room immediately if you have any other concerns worsening of symptoms. Departure Forms: Customer Survey General Discharge Information Prescriptions: Current Visit Scripts Oxycodone HCl/Acetaminophen (Percocet 5-325 MG Tablet) 1-2 TAB PO BID #15 TAB Diazepam (Valium) 1 TAB PO BIDP PRN spasms #15 TAB (Tomi Gan) PA/SUPERVISOR MICROFILM DUPLICATING UNIT Co-Sign Statement Statement: ED Attending supervision documentation- [] I saw and evaluated the patient. I have also reviewed all the pertinent lab results and diagnostic results. I agree with the findings and the plan of care as documented in the PA's/SUPERVISOR [employer]PLICATING [employer]'s documentation. [x] I have reviewed the ED Record and agree with the PA's/SUPERVISOR [employer]PLICATING [employer]'s documentation. [] Additions or exceptions (if any) to the PAs/SUPERVISOR [employer]PLICATING [employer]'s note and plan are summarized below: [] (Abdifatah Mendieta DO)
[2017-12-24] MEDS ORDERED: PERCOCET 5-3251 EACH PO (18:02)
[2017-12-24] MEDS ORDERED: VALIUM5 M2 PO (18:02)
[2017-12-28] MEDS ORDERED: VALIUM5 M2 PO (15:09)
[2017-12-28] MEDS ORDERED: PERCOCET 10-321 EACH PO (15:09)
== END 2017-12-24 18:10 ==
LOC: ERH 17:54
DX: M54.42 Lumbago with sciatica, left side (principal)

== ENCOUNTER 2018-01-21 18:34 | Emergency (ER) | payer OTHER ==
[~2018-01-21 18:34] MED LIST changes: +PERCOCET 10-321 EACH PO
[2018-01-21 18:57] VITALS: BP 189/88
== END 2018-01-21 20:42 | disposition admitted as inpatient to this hospital (09) ==
LOC: ERH 18:34
DX: M54.32 Sciatica, left side (principal)